=== PATIENT | female | born 1955 | race African-American/Black ===

== ENCOUNTER 2021-01-16 08:58 | Outpatient (CLI) | payer MEDICARE | END 2021-01-16 08:59 | disposition home or self-care (01) | LOC: CSHMAMMO 08:58 | PROVIDERS: ATTEND Family Medicine | DX: Z12.31 Encounter for screening mammogram for malignant neoplasm of breast (principal); Z80.3 Family history of malignant neoplasm of breast; Z91.89 Other specified personal risk factors, not elsewhere classified | CPT/HCPCS: 77063; 77067 ==